=== PATIENT | female | born 1980 | race Caucasian/White ===

== ENCOUNTER 2017-12-23 15:00 | Emergency (ER) | payer OTHER ==
[2017-12-23] MEDS ORDERED: NS 1,000 ML IV ONE (15:19)
[2017-12-23] MEDS ORDERED: ONDANSETRON 4 MG/2 ML VIAL IVP ONE (15:20)
[2017-12-23 15:31] LABS: PLATELET COUNT 222 10^3/uL (150-400)
--- NOTE | 2017-12-23 15:34 | EDPHY ---
H & P Time Seen by Provider: 12/23/17 15:13 HPI/ROS: Chief complaint. Abdominal pain HPI. 37-year-old female presents with abdominal pain since last night. She has had diarrhea for 2 days. Her discomfort is in the epigastrium and she describes as case only sharp as well as achiness. Questionable radiation through to her back. Nausea without vomiting. No chest discomfort or shortness of breath. No previous abdominal surgery. Both sister and dad have Crohn's disease. The patient has never been test. Her discomfort is not worse with movement or walking or eating. She did experience some increase in discomfort with drinking milk yesterday. ROS Constitutional. no fever/chills, no weakness Eyes. no problems with vision ENT. no sore throat, no nasal drainage Cardiovascular. no chest pain Respiratory. no shortness of breath, no cough Abdominal. Upper abdominal pain with nausea and diarrhea . no problems urinating MS. no calf pain/swelling, no neck/back pain, no joint pain Skin. no rash Lymph. no swollen glands Neuro. no headache, no dizziness, no difficulty walking or with speech Past Medical/Surgical History: Healthy Social History: , nonsmoker, no alcohol Smoking Status: Never smoked Physical Exam: General Appearance: Alert pleasant well-developed female mild distress vital signs significant for blood pressure 131/102 Eyes: Pupils equal and round no pallor or injection. ENT, Mouth: Mucous membranes are moist. Respiratory: There are no retractions, lungs are clear to auscultation. Cardiovascular: Regular rate and rhythm. Gastrointestinal: Abdomen is soft with mild tenderness in the epigastrium. Slight tenderness in both right and left upper quadrants but mainly discomfort in the epigastrium. No tenderness at McBurney's point Neurological: Awake and alert, sensory and motor exams grossly normal. Skin: Warm and dry, no rashes. Musculoskeletal: Neck is supple nontender. Extremities symmetrical, full range of motion. Psychiatric: Patient is oriented X 3, there is no agitation. Constitutional: Initial Vital Signs Temperature (C) 37 C 12/23/17 15:06 Heart Rate 98 12/23/17 15:06 Respiratory Rate 16 12/23/17 15:06 Blood Pressure 131/102 H 12/23/17 15:06 O2 Sat (%) 98 12/23/17 15:06 O2 Delivery Mode Room Air Allergies/Adverse Reactions: azithromycin Allergy (Verified 12/23/17 15:05) Penicillins Allergy (Verified 12/23/17 15:05) sulfamethoxazole [From Bactrim] Allergy (Verified 12/23/17 15:05) trimethoprim [From Bactrim] Allergy (Verified 12/23/17 15:05) Home Medications: Medication Instructions Recorded Ciprofloxacin HCl [Ciprofloxacin] 500 mg PO BID #10 tab 12/23/17 Claritin 12/23/17 Flonase Allergy Relief 12/23/17 Promethazine HCl [Phenergan 25mg 25 mg PO Q4-6PRN PRN #7 tab 12/23/17 (*)] Wellbutrin Xl 12/23/17 Medical Decision Making ED Course/Re-evaluation: Patient is cute given a GI cocktail which Relieved some of her symptoms. Re-evaluation at 4:35 p.m.. Patient is stable. The patient and I discussed lab results. We discussed treatment plan including criteria for return and importance of follow-up and further evaluation. She expresses understanding and agreement Differential Diagnosis: Somewhat confusing picture is that the patient has upper abdominal pain in I have considered gastroenteritis, gastritis, peptic ulcer disease, pancreatitis, gallbladder disease. Patient has an abnormal urinalysis with significant UTI but really does not have UTI symptoms. Possible etiology is her 2 days of diarrhea causing a UTI. - Data Points Laboratory Results: Laboratory Results 12/23/17 15:11 12/23/17 15:11 12/23/17 12/23/17 12/23/17 15:11 15:11 15:11 WBC 6.36 10^3/uL 10^3/uL (3.80-9.50) RBC 4.99 10^6/uL 10^6/uL (4.18-5.33) Hgb 15.9 g/dL g/dL (12.6-16.3) Hct 46.2 % % (38.0-47.0) MCV 92.6 fL fL (81.5-99.8) MCH 31.9 pg pg (27.9-34.1) MCHC 34.4 g/dL g/dL (32.4-36.7) RDW 11.7 % % (11.5-15.2) Plt Count 222 10^3/uL 10^3/uL (150-400) MPV 8.8 fL fL (8.7-11.7) Neut % (Auto) 81.5 % H % (39.3-74.2) Lymph % (Auto) 11.0 % L % (15.0-45.0) [place] % (Auto) 5.8 % % (4.5-13.0) Eos % (Auto) 1.1 % % (0.6-7.6) Baso % (Auto) 0.3 % % (0.3-1.7) Nucleat RBC Rel Count 0.0 % % (0.0-0.2) Absolute Neuts (auto) 5.18 10^3/uL 10^3/uL (1.70-6.50) Absolute Lymphs (auto) 0.70 10^3/uL L 10^3/uL (1.00-3.00) Absolute Monos (auto) 0.37 10^3/uL 10^3/uL (0.30-0.80) Absolute Eos (auto) 0.07 10^3/uL 10^3/uL (0.03-0.40) Absolute Basos (auto) 0.02 10^3/uL 10^3/uL (0.02-0.10) Absolute Nucleated RBC 0.00 10^3/uL 10^3/uL (0-0.01) Immature Gran % 0.3 % % (0.0-1.1) Immature Gran # 0.02 10^3/uL 10^3/uL (0.00-0.10) Sodium 141 mEq/L mEq/L (135-145) Potassium 3.7 mEq/L mEq/L (3.5-5.2) Chloride 103 mEq/L mEq/L (97-110) Carbon Dioxide 22 mEq/l mEq/l (22-31) Anion Gap 16 mEq/L mEq/L (8-16) BUN 15 mg/dL mg/dL (7-23) Creatinine 0.7 mg/dL mg/dL (0.6-1.0) Estimated GFR > 60 Glucose 91 mg/dL mg/dL (70-100) Calcium 8.6 mg/dL mg/dL (8.5-10.4) Lipase 216 IU/L IU/L (23-300) Beta HCG, Quant < 2.39 mIU/mL mIU/mL (0.00-4.83) Urine Color YELLOW Urine Appearance MODERATELY TURBID Urine pH 5.0 (5.0-7.5) Ur Specific [place] 1.027 (1.002-1.030) Urine Protein NEGATIVE (NEGATIVE) Urine Ketones TRACE H (NEGATIVE) Urine Blood 2+ H (NEGATIVE) Urine Nitrate NEGATIVE (NEGATIVE) Urine Bilirubin NEGATIVE (NEGATIVE) Urine Urobilinogen NEGATIVE EU EU (0.2-1.0) Ur Leukocyte Esterase 2+ H (NEGATIVE) Urine RBC 5-10 /hpf H /hpf (0-3) Urine WBC 50-182 /hpf H /hpf (0-3) Ur Epithelial Cells 2+ /lpf H /lpf (NONE-1+) Urine Bacteria 1+ /hpf H /hpf (NONE SEEN) Urine Mucus 3+ /lpf H /lpf (NONE-1+) Urine Glucose NEGATIVE (NEGATIVE) Medications Given: Discontinued Medications Al Hydroxide/Mg Hydroxide (Maalox Susp) 30 ml PO ONCE ONE Stop: 12/23/17 15:46 Last Admin: 12/23/17 16:16 Dose: 30 ml Sodium Chloride (Ns) 1,000 mls @ 0 mls/hr IV ONCE ONE PRN Reason: TKO Stop: 12/23/17 15:20 Last Admin: 12/23/17 15:23 Dose: 1,000 mls Lidocaine (Lidocaine 2% Viscous) 15 ml PO ONCE ONE Stop: 12/23/17 15:46 Last Admin: 12/23/17 16:16 Dose: 15 ml Ondansetron HCl (Zofran) 4 mg IVP EDNOW ONE Stop: 12/23/17 15:21 Last Admin: 12/23/17 15:24 Dose: 4 mg Departure - Departure Disposition: Home, Routine, Self-Care Clinical Impression: Urinary tract infection Qualifiers: Urinary tract infection type: site unspecified Hematuria presence: without hematuria Qualified Code(s): N39.0 - Urinary tract infection, site not specified Condition: Good Instructions: Urinary Tract Infection in Women (ED) Additional Instructions: Drink plenty of fluids and stay hydrated. Cipro as antibiotic twice daily. Phenergan if necessary for nausea and vomiting. Return for worsening symptoms. Recheck in 2 days if not improved Referrals: Aggie Wright MD [Primary Care Provider] - 2-3 days, if not improved Prescriptions: Ciprofloxacin HCl [Ciprofloxacin] 500 mg PO BID #10 tab Promethazine HCl [Phenergan 25mg (*)] 25 mg PO Q4-6PRN PRN #7 tab PRN Reason: Nausea/Vomiting, Use 1st
[2017-12-23] MEDS ORDERED: LIDOCAINE 2% VISCOUS 15 ML UDCUP PO ONE (15:45)
[2017-12-23] MEDS ORDERED: MAG HYDROX/AL HYDROX/SIMETH 30 ML UDCUP PO ONE (15:45)
[2017-12-23 17:17] VITALS: BP 128/79
== END 2017-12-23 17:18 | disposition home or self-care (01) ==
DX: N39.0 Urinary tract infection, site not specified (principal); B96.89 Other specified bacterial agents as the cause of diseases classified elsewhere
CPT/HCPCS: 96374; J2405